=== PATIENT | female | born 1950 | race Caucasian/White ===

== ENCOUNTER 2024-06-09 17:21 | Observation (INO) ==
[2024-06-09 18:01] LABS: ABS Basophils 0.1 10^3/uL (0.0-0.1); ABS Lymphocytes 1.2 10^3/uL (1.0-4.8); ABS Monocytes 0.3 10^3/uL (0.0-0.9); ABS Neutrophils 5.3 10^3/uL (1.5-7.6); ABS Nucleated RBC 0.01 10^3/ul; Eosinophil % 0.1 %; Hematocrit 41.7 % (35-45); Hemoglobin 14.2 g/dL (11.5-14.3); Lymphocyte % 17.3 %; Mean Corpuscular Hemoglobin 32.4 pg (27-33); Mean Corpuscular Hgb Conc 34.1 g/dL (31-36); Mean Corpuscular Volume 94.9 fL (80-97); Mean Platelet Volume 9.2 fL (7.5-11.2); Nucleated Red Blood Cells % 0.1 %/100WBC (0.0-0.8); Platelet Count 245 10^3/uL (150-450); Red Blood Count 4.39 10^6/uL (3.63-4.92); Red Cell Distribution Width 13.2 % (12-17); White Blood Count 6.9 10^3/uL (3.8-11.8)
[2024-06-09 18:24] LABS: High Sens Troponin Baseline < 3 pg/mL (<15)
[2024-06-09 18:32] LABS: ALT 12 U/L (7-52); Albumin 3.8 g/dL (3.5-5.7); Albumin/Globulin Ratio 1.5 (1-3); Alkaline Phosphatase 71 U/L (35-149); Anion Gap 6 mmol/L (2-16); Blood Urea Nitrogen 16 mg/dL (6-24); CO2 Carbon Dioxide 24 mmol/L (22-32); Calcium 8.9 mg/dL (8.6-10.3); Chloride 109 mmol/L (101-111); Creatinine, Serum 0.71 mg/dL (0.51-0.95); Globulin 2.6 g/dL (2-4); Glucose 113 mg/dL (70-100); Sodium 139 mmol/L (135-145); Total Bilirubin 0.6 mg/dL (0.2-1.0); Total Protein 6.4 g/dL (6.4-8.9); eGFR CKD-EPI 90.3 (>60)
[2024-06-09 18:45] LABS: TSH Ultra Thyroid Stim Horm 0.38 mcIU/mL (0.34-5.60)
[2024-06-09] MEDS: Iohexol 350 (CONTRAST) 500 ML MDV IV ONE (19:16)
[2024-06-09 19:20] LABS: High Sensitivity Troponin 1 Hr 3 pg/mL (<15)
[2024-06-09] MEDS: Lactated Ringers 1000 ml BAG 1,000 ML IV ONE (19:34)
[2024-06-09 19:41] LABS: Magnesium 1.8 mg/dL (1.9-2.7)
[2024-06-09 19:55] LABS: Urine Appearance Clear; Urine Bilirubin Negative (Negative); Urine Blood Negative (Negative); Urine Color Light-Yellow; Urine Glucose Negative (Negative); Urine Ketones 1+ (Negative); Urine Nitrite Negative (Negative); Urine Protein Trace (Negative); Urine Specific Gravity 1.049 (1.002-1.030); Urine Urobilinogen Negative (Negative); Urine pH 6.5 (5.0-8.0)
[2024-06-09 20:06] LABS: Urine Amorphous Crystals Present /HPF (Absent); Urine Bacteria 1+ /HPF (Absent); Urine Red Blood Cell 2+(6-10/hpf) /HPF (0-Trace); Urine Squamous Epithelial Cell Present /HPF (Absent); Urine White Blood Cell 1+(6-10/hpf) /HPF (0-Trace)
[2024-06-09] MEDS: Ondansetron 4 mg VIAL 2 MG/ML 2 ml VIAL IV ONE (20:16)
[2024-06-09] MEDS ORDERED: Ondansetron 4 mg VIAL 2 MG/ML 2 ml VIAL IV PRN (22:19)
[2024-06-10] MEDS: cefTRIAXone 1 gm/50 mL D5W 1 GM/50 ML BAG IV SCH (00:51)
[2024-06-10] MEDS: Enoxaparin 40 MG/0.4 ML SYR SUBCUT SCH (06:01)
[2024-06-11] MEDS ORDERED: Senna TAB 8.6 mg TAB PO PRN (12:11)
[2024-06-11] MEDS ORDERED: Polyethylene Glycol 3350 17 GM PACKET PO PRN (12:11)
[2024-06-11] MEDS: Magnesium Hydroxide LIQ 30 ML UDC PO PRN (12:40)
[2024-06-13 08:39] LABS: ABS Basophils 0.1 10^3/uL (0.0-0.1); ABS Eosinophils 0.2 10^3/uL (0.0-0.5); ABS Lymphocytes 2.6 10^3/uL (1.0-4.8); ABS Monocytes 0.5 10^3/uL (0.0-0.9); ABS Neutrophils 3.6 10^3/uL (1.5-7.6); Eosinophil % 2.4 %; Hematocrit 45.7 % (35-45); Hemoglobin 15.3 g/dL (11.5-14.3); Lymphocyte % 36.9 %; Mean Corpuscular Hgb Conc 33.5 g/dL (31-36); Mean Corpuscular Volume 95.4 fL (80-97); Mean Platelet Volume 9.1 fL (7.5-11.2); Platelet Count 271 10^3/uL (150-450); Red Blood Count 4.79 10^6/uL (3.63-4.92); Red Cell Distribution Width 13.4 % (12-17)
[2024-06-13 09:15] LABS: Calcium 9.8 mg/dL (8.6-10.3); Creatinine, Serum 0.89 mg/dL (0.51-0.95); Magnesium 2.1 mg/dL (1.9-2.7); Potassium 4.3 mmol/L (3.5-5.0); eGFR CKD-EPI 68.8 (>60)
[2024-06-13 11:18] VITALS: BP 110/67
[2024-06-13 14:28] LABS: Urine Appearance Clear; Urine Bilirubin Negative (Negative); Urine Blood Negative (Negative); Urine Color Light-Yellow; Urine Glucose Negative (Negative); Urine Ketones Negative (Negative); Urine Nitrite Negative (Negative); Urine Protein Negative (Negative); Urine Specific Gravity 1.018 (1.002-1.030); Urine Urobilinogen Negative (Negative); Urine pH 5.5 (5.0-8.0)
== END 2024-06-13 15:25 | disposition home or self-care (01) ==
LOC: EDHOLD 17:21 → ED 17:21 → MEDTELE 06-10 10:56
PROVIDERS: ADMIT Internal Medicine; ATTEND Internal Medicine